=== PATIENT | female | born 1970 | race Caucasian/White ===

== ENCOUNTER 2018-06-22 15:27 | Emergency (ER) | payer SELFPAY ==
[2018-06-22 18:08] LABS: ADD MAN DIFF? NO
[2018-06-22] MEDS: morphine 4 MG/ML VIAL IV (18:08)
[2018-06-22] MEDS: SOD CHLORIDE 0.9% 500 ML IV (18:08)
[2018-06-22] MEDS: ONDANSETRON 4 MG INJ IV (18:08)
[2018-06-22 18:16] LABS: WHITE BLOOD COUNT 9.8 10^3/ul (4.8-10.8)
[2018-06-22 18:16] LABS: BASOPHILS % 0.1 % (0.0-2.0); HEMATOCRIT 30.4 % (37.0-47.0); LYMPHOCYTES # 1.5 10^3/ul (0.8-2.9); LYMPHOCYTES % 15.4 % (15.0-51.0); MEAN CORPUSCULAR HGB CONC 36.2 g/dl (32.0-37.0); MEAN CORPUSCULAR VOLUME 82.8 fl (82.0-101.0); MEAN PLATELET VOLUME 9.3 fl (7.4-10.4); MONOCYTES % 9.9 % (0.0-11.0); NEUTROPHIL # 7.2 10^3/ul (1.6-7.5); NEUTROPHILS % 74.3 % (39.0-77.0); PLATELET COUNT 246 10^3/UL (140-415); RED BLOOD COUNT 3.67 10^6/ul (4.20-5.40)
[2018-06-22 18:35] LABS: ALANINE AMINOTRANSFERASE 62 IU/L (13-69); ALBUMIN 4.2 g/dl (3.3-4.9); ALBUMIN/GLOBULIN RATIO 1.16; ALKALINE PHOSPHATASE 108 IU/L (42-121); ANION GAP 12 (5-13); ASPARTATE AMINO TRANSFERASE 87 IU/L (15-46); BILIRUBIN,INDIRECT 0.3 mg/dl (0-1.1); BILIRUBIN,TOTAL 0.3 mg/dl (0.2-1.3); BLOOD UREA NITROGEN 2 mg/dl (7-20); CALCIUM 7.8 mg/dl (8.4-10.2); CARBON DIOXIDE 24 mmol/L (21-31); CHLORIDE 103 mmol/L (97-110); CREATININE 0.49 mg/dl (0.44-1.00); Estimated GFR > 60 mL/min (>60); GLUCOSE 139 mg/dl (70-220); INR 0.86; LIPASE 109 U/L (23-300); PROTIME 11.8 Sec (11.9-14.9); PT RATIO 0.9; SODIUM 139 mmol/L (135-144); TOTAL PROTEIN 7.8 g/dl (6.1-8.1)
[2018-06-22 18:36] LABS: PARTIAL THROMBOPLASTIN TIME 20.7 Sec (23.0-35.0)
[2018-06-22 18:46] LABS: TROPONIN-I < 0.012 ng/ml (0.000-0.120)
[2018-06-22] MEDS: POTASSIUM CHLORIDE (SR) 20 MEQ TAB PO (19:57)
[2018-06-22 20:09] LABS: URINE BLOOD (Dip) POC 2+ (NEGATIVE); URINE GLUCOSE (Dip) POC Negative (NEGATIVE); URINE KETONES (Dip) POC 3+ (NEGATIVE); URINE LEUKOCYTE EST (Dip) POC Negative (NEGATIVE); URINE NITRITE (Dip) POC Negative (NEGATIVE); URINE TOTAL PROTEIN POC Trace (NEGATIVE)
[2018-06-22 20:16] LABS: ADD UMIC YES; UR ASCORBIC ACID NEGATIVE (NEGATIVE); UR BILIRUBIN (Dip) NEGATIVE (NEGATIVE); UR BLOOD (Dip) 3+ mg/dL (NEGATIVE); UR CLARITY CLEAR (CLEAR); UR COLOR RED (YELLOW); UR GLUCOSE (Dip) NEGATIVE (NEGATIVE); UR KETONES (Dip) 2+ mg/dL (NEGATIVE); UR LEUKOCYTE ESTERASE (Dip) NEGATIVE Leu/ul (NEGATIVE); UR NITRITE (Dip) NEGATIVE (NEGATIVE); UR RBC 34 /HPF (0-5); UR SQUAMOUS EPITHELIAL CELL FEW /HPF (FEW); UR TOTAL PROTEIN (Dip) NEGATIVE (NEGATIVE); UR UROBILINOGEN (Dip) NEGATIVE (NEGATIVE); UR WBC 1 /HPF (0-5)
[2018-06-22] MEDS: NAPROXEN 500 MG TAB PO (20:31)
== END 2018-06-22 20:42 | disposition home or self-care (01) ==
LOC: FTE 15:27
DX: K52.9 Noninfective gastroenteritis and colitis, unspecified (principal); E87.6 Hypokalemia; R10.9 Unspecified abdominal pain
CPT/HCPCS: 36415; 71045; 74176; 80053; 81001; 81003; 81025; 83690; 84484; 84702; 85025; 85610; 85730; 93005; 96361; 96374; 96375; 99285-25